=== PATIENT | male | born 1960 | race Caucasian/White ===

== ENCOUNTER 2022-01-28 15:23 | Outpatient (CLI) | payer BC ==
[2022-01-28 16:47] LABS: Mean Corpuscular HGB CONC 34.2 g/dL (32.0-36.0); Mean Corpuscular Hemoglobin 31.4 pg (27.0-33.0); Mean Corpuscular Volume 91.7 fl (81.2-95.1); Mean Platelet Volume 10.6 fl (7.4-10.4); Platelet Count 243 10x3/uL (150-450); RBC Distribution Width 12.3 % (11.5-14.5); Red Blood Cell (RBC) Count 4.46 10x6/uL (4.32-5.72); White Blood Cell (WBC) Count 5.7 10x3/uL (3.5-10.5)
[2022-01-28 17:02] LABS: Anion Gap 14 mmol/L (10-20); BUN (Urea Nitrogen) 16 mg/dL (8.4-25.7); Calc. Creatinine Clearance 0 mL/min (70-130); Calcium 9.4 mg/dL (7.8-10.44); Carbon Dioxide 23 mmol/L (23-31); Chloride 108 mmol/L (98-107); Estimated GFR 67; Glucose 178 mg/dL (80-115); Potassium 3.6 mmol/L (3.5-5.1); Sodium 141 mmol/L (136-145)
[2022-01-28 17:06] LABS: Prothrombin Time 10.8 sec (9.5-12.1)
== END 2022-01-28 15:24 | disposition home or self-care (01) ==
LOC: LABBT 15:23
PROVIDERS: ATTEND Surgery
DX: Z01.818 Encounter for other preprocedural examination (principal); M51.16 Intervertebral disc disorders with radiculopathy, lumbar region; M48.062 Spinal stenosis, lumbar region with neurogenic claudication; Z20.822 Contact with and (suspected) exposure to COVID-19
CPT/HCPCS: 80048; 85027; 85610; 85730; 87811; 93005; 93010

== ENCOUNTER 2022-02-02 07:59 | Observation (INO) | payer BC ==
[2022-01-29 14:30] VITALS: BMI 38.4
[2022-02-02] MEDS ORDERED: CEFAZOLIN 2 GM VIAL ONE (10:15)
[2022-02-02] MEDS ORDERED: Sodium Chloride 0.9% 100 ML ONE (10:15)
[2022-02-02] MEDS ORDERED: fentaNYL Citrate/PF 100 MCG/2 ML SYRINGE ONE (10:25)
[2022-02-02] MEDS ORDERED: Midazolam HCl 2 mg/2 ml Vial ONE (10:25)
[2022-02-02] MEDS ORDERED: Ketamine 50 MG/ML (10ML VIAL) ONE (10:25)
[2022-02-02] MEDS ORDERED: HYDROmorphone 0.5 MG/0.5 ML SYRINGE ONE (10:25)
[2022-02-02] MEDS ORDERED: Thrombin 5000 UNITS/5 ML VIAL ONE ×2 (10:34→12:58)
[2022-02-02] MEDS ORDERED: Dexamethasone 20 MG/5 ML VIAL ONE (10:55)
[2022-02-02] MEDS ORDERED: ePHEDrine 50 MG/ML VIAL ONE (10:55)
[2022-02-02] MEDS ORDERED: Phenylephrine 10 MG/ML VIAL ONE (10:55)
[2022-02-02] MEDS ORDERED: PROPOFOL 200 MG/20 ML VIAL ONE (10:55)
[2022-02-02] MEDS ORDERED: Lidocaine 1% MPF 2 ML VIAL ONE (10:55)
[2022-02-02] MEDS ORDERED: Metoclopramide HCl 10 MG/2 ML VIAL ONE (10:55)
[2022-02-02] MEDS ORDERED: Rocuronium Bromide 10 MG/ML (10ML VIAL) ONE (10:55)
[2022-02-02] MEDS ORDERED: Ondansetron PF 4 MG/2 ML Vial ONE (10:55)
[2022-02-02] MEDS ORDERED: Ketorolac Tromethamine 30 MG/ML VIAL ONE (10:55)
[2022-02-02] MEDS ORDERED: SUGAMMADEX SODIUM 200 MG/2 ML VIAL ONE (11:27)
[2022-02-02] MEDS ORDERED: Ondansetron PF 4 MG/2 ML Vial IVP PRN (11:31)
[2022-02-02] MEDS ORDERED: traMADol HCl 50 MG TAB PO PRN (11:31)
[2022-02-02] MEDS ORDERED: HYDROcodone/Acetaminophen 7.5/325 mg Tablet PO PRN (11:31)
[2022-02-02] MEDS ORDERED: diphenhydrAMINE 25 MG CAP PO PRN (11:31)
[2022-02-02] MEDS ORDERED: Acetaminophen/Codeine 30-300mg Tablet PO PRN (11:31)
[2022-02-02] MEDS ORDERED: Morphine 2 MG/ML VIAL SLOW IVP PRN (11:31)
[2022-02-02] MEDS ORDERED: Acetaminophen 325 MG TAB PO PRN (11:31)
[2022-02-02] MEDS ORDERED: hydrALAZINE 20 MG/ML VIAL SLOW IVP PRN (11:33)
[2022-02-02] MEDS ORDERED: tiZANidine HCl 4 MG TAB PO PRN (11:33)
[2022-02-02] MEDS ORDERED: ePHEDrine Sulfate 50 MG/10 ML VIAL ONE (12:53)
[2022-02-02] MEDS ORDERED: Fentanyl 100 MCG/2 ML VIAL ONE (14:01)
[2022-02-02] MEDS: Sodium Chloride 0.9% 1,000 ML IV SCH (17:12)
[2022-02-02] MEDS: CEFAZOLIN 2 GM in Sodium Chloride 0.9% 100 ML IVPB SCH (19:30)
[2022-02-02] MEDS ORDERED: Atorvastatin Calcium 20 MG TAB PO SCH (21:00)
[2022-02-03] MEDS: CEFAZOLIN 2 GM in Sodium Chloride 0.9% 100 ML IVPB SCH (03:34)
[2022-02-03] MEDS: Sodium Chloride 0.9% 1,000 ML IV SCH (03:34)
[2022-02-03 08:20] VITALS: BP 129/77; TEMP 97.2
[2022-02-03] MEDS ORDERED: Nebivolol HCl 5 MG TAB PO SCH (09:00)
[2022-02-03] MEDS ORDERED: Gabapentin 100 MG CAP PO SCH (09:00)
== END 2022-02-03 11:04 | disposition home or self-care (01) ==
LOC: SDC 07:59 → MSONC 11:35
PROVIDERS: ADMIT Surgery; ATTEND Surgery
PROC: 01NB0ZZ Release Lumbar Nerve, Open Approach (ICD-10-PCS; principal; 2022-02-02)
DX: M51.16 Intervertebral disc disorders with radiculopathy, lumbar region (principal); M48.062 Spinal stenosis, lumbar region with neurogenic claudication; I10 Essential (primary) hypertension; E78.5 Hyperlipidemia, unspecified; I25.2 Old myocardial infarction; E66.9 Obesity, unspecified; Z68.38 Body mass index [BMI] 38.0-38.9, adult; Z86.16 Personal history of COVID-19; Z79.899 Other long term (current) drug therapy; Z88.1 Allergy status to other antibiotic agents
CPT/HCPCS: 76000; J0690; J1100; J1170; J1885; J2250; J2370; J2405; J2704; J2765; J3010; J3370; J3490; J7050